=== PATIENT | female | born 1995 | race Caucasian/White ===

== ENCOUNTER 2021-11-06 05:05 | Inpatient (IN) | payer SELFPAY ==
[2021-11-06] VITALS (20 sets, daily range): BP systolic 88–120; BP diastolic 41–78; PULSE 58–76; RESP 16; TEMP 35.9–36.7; O2SAT 94–100; BMI 27.3
[2021-11-06] MEDS: Lactated Ringers 1,000 ML 999 ML IV (05:32)
[2021-11-06] MEDS: Acetaminophen 500 MG Tablet 1000 MG PO ×4 (05:41→23:42)
[2021-11-06 05:49] LABS: Absolute Lymphocyte Count 1.78 X10^3/uL (0.83-4.51); Absolute Neutrophil Count 5.5 X10^3/uL (2.0-7.7); Basophil# 0.06 X10^3/uL; Basophil% 0.7 % (0-1); Eosinophils% 2.4 % (0-5); Hematocrit 37.5 % (37-47); Hemoglobin 12.7 g/dL (12.0-15.0); Lymphocyte # 1.78 X10^3/ul (0.83-4.51); Lymphocyte % 21.7 % (19-41); Mean Corp Hgb Conc 33.9 g/dL (32-36); Mean Corpuscular Hgb 30.5 pg (27.0-32.0); Mean Corpuscular Volume 89.9 fL (81-99); Mean Platelet Vol. 10.9 fl (6.2-12.0); Monocyte# 0.58 X10^3/uL; Monocyte% 7.1 % (0-10); NRBC Flagged by Analyzer 0 % (0-5); Neutrophil # 5.54 X10^3/uL (2.7-7.7); Neutrophil % 67.5 % (47-70); Platelet Count 169 K/mm3 (150-450); RBC Distribution Width CV 13.3 % (11.6-14.6); RBC Distribution Width SD 43.8 fl (35.1-43.9); Red Blood Count 4.17 M/mm3 (4.2-5.4); White Blood Count 8.2 K/mm3 (4.4-11.0)
[2021-11-06 06:06] LABS: Bedside Glucose 82 mg/dL (74-106)
[2021-11-06] MEDS: Lactated Ringers 1,000 ML 150 ML IV (06:37)
[2021-11-06] MEDS: Sodium Citrate/Citric Acid 30 ML UDC PO (07:15)
[2021-11-06] MEDS: Cefazolin 2 GM in 0.9% Normal Saline 100 ML IV (07:32)
[2021-11-06 08:22] LABS: Chlamydia Trachomatis by PCR Negative (Negative); Neisserai gonorrhoeae by PCR Negative (Negative); Probe Check PASS; Sample Adequacy Control PASS; Specimen Processing Control PASS
--- NOTE | 2021-11-06 08:36 | PCM.HP.OB ---
HPI - General General Date of Admission: 11/06/21 HPI Narrative DAJUAN FRANCO, is a 26 F who presents for a scheduled section at 39 week gestation. History of 1 prior section. Breech presentation. A2GDM well controlled on insulin. Maternal Data Information [facility] Calculator Estimated Delivery Date Method Current WG Current Estimate 11/10/21 LMP (Certain) 39w 3d PFSH PFS Medical History (Updated 11/06/21 @ 08:[address] Tana Tarango DO) Gestational diabetes depression Pre-eclampsia Superficial varicosities Home Medications insulin NPH isoph U-100 human [Humulin N NPH U-100 Insulin] 10 unit SUBCUT QPM 11/06/21 [History Last Taken 11/05/21 20:00] Allergy/AdvReac Type Severity Reaction Status Date / Time No Known Allergies Allergy Verified 11/06/21 05:21 Surgical History (Updated 11/06/21 @ 08:[address] Tana Tarango DO) Previous section Social History Smoking Status: Never smoker History Elective abortions Hx Para 1 Spontaneous abortions Hx # Term Pregnancies Ectopic pregnancies Hx # Pregnancies Multiple births # of living children Vital Signs Vital Signs Vital Signs: 11/06/21 05:49 Temperature 97.1 F L Temperature Source Axillary Pulse Rate 66 Respiratory Rate 16 Blood Pressure 113/71 Blood Pressure Mean 85 Blood Pressure Source Monitor Blood Pressure Position Semi-Fowlers Blood Pressure Location Right Arm Pulse Ox 100 Oxygen Delivery Method Room Air Weight Weight: 145 lb 1.027 oz Body Mass Index (BMI) 27.3 Physical Exam Const alert and no apparent distress General Appearance: comfortable HEENT normocephalic Resp normal respiratory effort Cardio regular rate GI soft to palpation and non-tender Extremity normal to inspection Labs Labs Labs: Blood Type A NEGATIVE Antibody Screen NEGATIVE Hct 37.5 % (37-47) Hgb 12.7 g/dL (12.0-15.0) C.trachomatis DNA (PCR) Negative (Negative) Assessment & Plan (1) 39 weeks gestation of : PLAN: Admit for scheduled repeat section. TAUS performed confirming breech presentation. Patient declined ECV. Discussed r/b/a to a section and consent signed. Ancef pre op. Check BG. (2) GDM, class A2: (3) History of section: (4) Breech presentation: (5) History of pre-eclampsia: (6) History of depression:
--- NOTE | 2021-11-06 08:40 | PCM.OPRPT ---
Problems Associated Problem List Diagnoses (1) History of depression: (2) History of pre-eclampsia: (3) Breech presentation: (4) History of section: (5) GDM, class A2: (6) 39 weeks gestation of : (7) Delivery by section: Report of Operation Date of Procedure: 11/06/21 Pre-Operative Diagnosis: 39 week gestation, single IUP, history prior section, breech presentation, A2GDM well controlled Post-Operative Diagnosis: As above Surgery/Procedure Performed:: RLTCS via pfannenstiel incision Description of Surgical Findings:: Lower uterine segment was thin. Bilateral adnexa normal. Minimal adhesive disease - majority of adhesive disease was rectus to fascia. Clear fluid. Normal placenta. VMI in zoe breech presentation. Surgeon: Emelina electroneurodiagnostic technologist: Sebastian KRISHNAMURTHY Type of Anesthesia: Spinal Special Medications: None Specimen's removed: Placenta Drains: Cunningham Estimated Blood Loss (mL): 600 Fluids Replaced: 750 Description of Procedure: Patient was taken to the operating room where spinal anesthesia was found to be adequate. She was prepped and draped in the dorsal position with a leftward tilt. A Pfannenstiel skin incision was made with a scalpel and this was carried down to the underlying layer of fascia. The fascia was incised in the midline. The fascia was extended laterally using Pandya scissors. The fascia was dissected off of the rectus muscles using a combination of sharp and blunt dissection, and adhesive disease was noted of the rectus to the fascia. The rectus muscles were the midline. The peritoneum was entered bluntly with good visualization of the bladder. The peritoneal incision was extended. Very minimal adhesions of the bladder were noted to the lower uterine segment. A bladder flap was created. The lower uterine segment was thin appearing. A low transverse incision was made on the uterus with a scalpel. Clear fluid was noted. The buttocks of the was delivered through the hysterotomy followed by both legs and the body. Next the arms were delivered easily, followed by the head which was flexed upon delivery. A viable male was delivered in breech presentation easily, and without any force or delay. Viable male was vigorous upon delivery. The cord was clamped and cut after some delay. The was handed off to the nursery staff. The placenta was removed with manual extraction. The uterus was cleared of all clot and debris. The uterus was exteriorized. The uterine incision was closed in 2 layers. The first layer was closed using Vicryl in a running locked fashion. A second imbricating layer using Vicryl was used. The uterus was then placed back in the abdomen. Alla was placed over the hysterotomy. The incision was noted to be hemostatic. The peritoneum was closed with Vicryl in a running fashion. The rectus was made hemostatic with the Bovie cautery. The fascia was closed with strata fix in a running fashion. Subcutaneous space was irrigated and made hemostatic with the Bovie cautery. Subcutaneous space was reapproximated with 3 interrupted Vicryl sutures. The skin was closed in a subcuticular fashion using Monocryl. A dressing was placed. Instrument, sponge, and needle counts were correct. The patient was taken to recovery in stable condition. Grafts/Implants Used: None Complications None Admit VTE Documentation VTE Present on Admission: No VTE Mechan Device Prophylaxis: SCD's
[2021-11-06] MEDS: Ketorolac 30 MG/ML Syringe IV ×3 (09:13→21:13)
[2021-11-06] MEDS: Oxytocin 30 units/NS 500 ml 30 UNITS/500 ML IV.SOLN 167 UNITS IV (09:15)
[2021-11-06 09:50] LABS: Bedside Glucose 91 mg/dL (74-106)
[2021-11-06] MEDS: Lactated Ringers 1,000 ML 100 ML IV (11:58)
[2021-11-06] MEDS: 0.9% Saline Lock 10 ML Syringe IV (21:13)
[2021-11-07] MEDS: Ketorolac 30 MG/ML Syringe IV (03:24)
[2021-11-07] MEDS: 0.9% Saline Lock 10 ML Syringe IV (03:24)
[2021-11-07 03:27] VITALS: BP 94/60; PULSE 74; RESP 16; TEMP 36.5; O2SAT 96
[2021-11-07] MEDS: Acetaminophen 500 MG Tablet 1000 MG PO (06:24)
[2021-11-07 06:36] LABS: Hematocrit 30.5 % (37-47); Hemoglobin 10.2 g/dL (12.0-15.0); Mean Corp Hgb Conc 33.4 g/dL (32-36); Mean Corpuscular Volume 89.7 fL (81-99); Mean Platelet Vol. 10.9 fl (6.2-12.0); Platelet Count 143 K/mm3 (150-450); RBC Distribution Width CV 13.6 % (11.6-14.6); RBC Distribution Width SD 44.7 fl (35.1-43.9); White Blood Count 9.8 K/mm3 (4.4-11.0)
--- NOTE | 2021-11-07 06:55 | PCM.PN.OB ---
Subjective Subjective Patient seen at bedside. Denies any headache, dizziness, SOB, or CP. Ambulating and voiding without difficulty. with minimal support. Desires discharge home today. Objective Data Objective Data Vital Signs: Vital Signs Temp Pulse Resp BP Pulse Ox 97.7 F L 74 16 94/60 96 11/07/21 03:27 11/07/21 03:27 11/07/21 03:27 11/07/21 03:27 11/07/21 03:27 Oxygen Delivery Method Room Air Weight: 145 lb 1.027 oz Body Mass Index (BMI) 27.3 Intake & Output: Intake and Output for Last 24 Hours 11/05/21 11/06/21 11/07/21 23:59 23:59 23:59 Intake Total 3233.38 / 3233.38 Output Total 1950 / 1950 Balance 1283.38 / 1283.38 Lab / Micro Data Result Diagrams: 11/07/21 06:25 Labs: Laboratory Results - last 24 hr 11/06/21 05:32: Blood Type A NEGATIVE, Antibody Screen NEGATIVE 11/06/21 06:33: Chlam trachomat DNA PCR Negative, N.gonorrhoeae DNA (PCR) Negative 11/06/21 09:25: POC Glucose 91 11/07/21 06:25: WBC 9.8, RBC 3.40 L, Hgb 10.2 L, Hct 30.5 L, MCV 89.7, MCH 30.0, MCHC 33.4, RDW Std Deviation 44.7 H, RDW Coeff of Ann 13.6, Plt Count 143 L, MPV 10.9 ROS Eyes Eyes: Denies blurry vision, change in vision or spots in vision ENT HEENT: Denies dizziness or headache(s) Cardiovascular Cardiovascular: Denies abdominal pain, chest pain or dyspnea Respiratory/Chest Respiratory/Chest: Denies cough, dyspnea, shortness of breath at rest or shortness of breath with exertion Gastrointestinal Gastrointestinal: Denies abdominal pain, diarrhea or vomiting Genitourinary Genitourinary: Denies change in urinary stream, difficulty urinating or dysuria Musculoskeletal Musculoskeletal: Reports none Integumentary Integumentary: Denies rash Neurologic Neurologic: Denies dizziness, headache(s), memory loss or weakness Physical Exam Narrative Dressing is dry and intact Const alert and no apparent distress General Appearance: cooperative and comfortable Exam Limitations: no limitations HEENT normocephalic Eyes General Eye: normal appearance of both eyes Neck full ROM General: normal visual inspection Chest Chest: symmetrical chest wall rise Resp normal respiratory effort and normal air movement Effort and Inspection: symmetric chest movement Auscultation: clear to auscultation bilaterally Cardio regular rate and regular rhythm GI normal to inspection, nondistended, normoactive bowel sounds Back/Spine normal ROM Extremity full ROM and no calf tenderness General Extremity: normal exam except as noted Skin no rashes or lesions noted Neuro CN's II-XII intact bilaterally Psych mental status grossly normal Assessment & Plan (1) Delivery by section: (2) GDM, class A2: (3) Breech presentation: QUALIFIERS: Fetus number: single or unspecified fetus Qualified Code(s): O32.1XX0 - Maternal care for breech presentation, not applicable or unspecified (4) History of section: PLAN: PO Day 1 Repeat C/S GDM A2 - controlled Pain control support D/C home with follow up in office 1 week
--- NOTE | 2021-11-07 06:59 | DS.PCM_ITS ---
Providers Date of Admission: 11/06/21 Primary Care Physician: No Primary Care Phys Reason For Visit: C SECTION/C SECTION DELIVERY Diagnosis Discharge Diagnosis (1) Delivery by section: Status: Acute (2) GDM, class A2: Status: Acute Code(s): O24.419 - Gestational diabetes mellitus in , unspecified control (3) Breech presentation: Status: Acute Code(s): O32.1XX0 - Maternal care for breech presentation, not applicable or unspecified Qualifiers: Fetus number: single or unspecified fetus Qualified Code(s): O32.1XX0 - Maternal care for breech presentation, not applicable or unspecified (4) History of section: Status: Acute Code(s): Z98.891 - History of uterine scar from previous surgery Hospital Course Operations section Summary of Care Provided Hospital Course: Patient was for a repeat section and hospital course uneventful. Physical Exam Narrative Dressing is dry and intact Const alert and no apparent distress General Appearance: cooperative and comfortable Exam Limitations: no limitations HEENT normocephalic Eyes General Eye: normal appearance of both eyes Neck full ROM General: normal visual inspection Chest Chest: symmetrical chest wall rise Resp normal respiratory effort and normal air movement Effort and Inspection: symmetric chest movement Auscultation: clear to auscultation bilaterally Cardio regular rate and regular rhythm GI normal to inspection, nondistended, normoactive bowel sounds Back/Spine normal ROM Extremity full ROM and no calf tenderness General Extremity: normal exam except as noted Skin no rashes or lesions noted Neuro CN's II-XII intact bilaterally Psych mental status grossly normal Weight / BMI Weight Weight: 145 lb 1.027 oz Body Mass Index (BMI) 27.3 ABG / Lab / Microbiology Data Result Diagrams: 11/07/21 06:25 Laboratory: Laboratory Results - last 24 hr 11/06/21 05:32: Blood Type A NEGATIVE, Antibody Screen NEGATIVE 11/06/21 06:33: Chlam trachomat DNA PCR Negative, N.gonorrhoeae DNA (PCR) Negative 11/06/21 09:25: POC Glucose 91 11/07/21 06:25: WBC 9.8, RBC 3.40 L, Hgb 10.2 L, Hct 30.5 L, MCV 89.7, MCH 30.0, MCHC 33.4, RDW Std Deviation 44.7 H, RDW Coeff of Ann 13.6, Plt Count 143 L, MPV 10.9 D/C Instructions Discharge Diet: No restrictions May resume sexual activity in: 6-8 weeks Weight Bearing Status: Weight bearing as tolerated Lifting Restrictions: 20 lbs Call your doctor if your incision/area has: Continuous Slow Oozing, Increased Pain/ Swelling, Increased Redness, Foul Smelling Discharge and Swelling at the i ncision site Call your doctor if you observe: Fever of 101 or Higher, Inability to urinate, Using more than 1 pad per hour, Shortness of breath, Chest pain, Calf discomfort and Uncontrolled pain Remove Dressing in: 5 days Cleanse incision/area with: Soap & Water and Keep Dressing Clean & Dry When: 1 week in office for incision check or sooner if needed 6 weeks Meaningful Use Info Meaningful Use Diagnoses (Choose all that apply): None applicable Discharge Plan Admission Admit Date/Time: 11/06/21 05:05 Primary Reason for Your Visit: Repeat C/S Attending Provider: Tana Tarango Primary Care Provider: Care Physician,Cailin Primary Discharge Orders/Prescriptions Prescriptions: Discontinued Humulin N NPH U-100 Insulin 100 unit/mL Cartridge 10 unit SUBCUT QPM RF: 0 Referrals / Follow Up: Care Physician,No Primary [Primary Care Provider] - Disposition Disposition (needs filled in before D/C Order can be placed): Home, Self Care
[2021-11-07 07:06] LABS: Bedside Glucose 86 mg/dL (74-106)
[2021-11-07 08:52] VITALS: BP 96/63; PULSE 74; RESP 16; TEMP 36.7; O2SAT 98
[2021-11-07] MEDS: Ibuprofen 600 MG Tablet PO (08:58)
[2021-11-07 12:00] VITALS: BP 97/51; PULSE 72; RESP 16; TEMP 36.7; O2SAT 98
== END 2021-11-07 12:00 | disposition home or self-care (01) | DRG 788 ==
PROVIDERS: Admitting Provider Obstetrics & Gynecology; Visit Provider Obstetrics & Gynecology
PROC: 10D00Z1 Extraction of Products of Conception, Low, Open Approach (ICD-10-PCS; CPT 59514; principal; 2021-11-06 07:15)
DX: O34.211 Maternal care for low transverse scar from previous cesarean delivery (principal); O24.425 Gestational diabetes mellitus in childbirth, controlled by oral hypoglycemic drugs; O32.1XX0 Maternal care for breech presentation, not applicable or unspecified; Z37.0 Single live birth; Z3A.39 39 weeks gestation of pregnancy
CPT/HCPCS: 59050; 82962; 85025; 85027; 86850; 86900; 86901; 87491; 87591; 99218; 99251; J7120; A4216; G0378; G0463; J2405